=== PATIENT | male | born 1945 | race Two or more races ===

== ENCOUNTER → 2021-12-16 | Emergency (ER) | payer OTHER ==
[~2021-12-16] VITALS: Ht 182.9 cm; Wt 89.8 kg
[~2021-12-16] MED LIST: ADALAT CC30 MG; ARICEPT5 MG; CARDURA1 MG; CRESTOR5 MG; DIOVAN40 MG; HYDROCHLOROTHIA25 MG; NAMENDA5 MG; PLAVIX75 MG; ROSUVASTATIN CA10 MG
== END | disposition left against medical advice (07) ==
LOC: ER 15:22
DX: Z53.21 Procedure and treatment not carried out due to patient leaving prior to being seen by health care provider (principal)